=== PATIENT | female | born 1995 | race Two or more races ===

== ENCOUNTER → 2019-11-30 | Outpatient (CLI) | payer MEDICAID | END | disposition home or self-care (01) | LOC: RAD 14:15 | PROVIDERS: ATTEND Internal Medicine Gastroenterology | DX: R19.4 Change in bowel habit (principal); K62.5 Hemorrhage of anus and rectum; R14.0 Abdominal distension (gaseous); F41.9 Anxiety disorder, unspecified; L68.0 Hirsutism; Z87.891 Personal history of nicotine dependence; Z68.25 Body mass index [BMI] 25.0-25.9, adult | CPT/HCPCS: 71045; 74021 ==